=== PATIENT | male | born 2000 | race Caucasian/White ===

== ENCOUNTER 2019-10-21 11:38 | Outpatient (CLI) | payer OTHER, SELFPAY ==
--- NOTE | ~2019-10-21 | US_ITS ---
EXAMINATION: US abdomen limited DATE: 10/21/2019 12:31 INDICATION: Nausea, vomiting, abdominal pain TECHNIQUE: Multiple grayscale and Doppler ultrasound images of the abdomen were obtained. COMPARISON: CT, 10/02/2015 FINDINGS: The head and and body of the pancreas are normal. The pancreatic tail is obscured by bowel gas. There is a 3.2 x 2.9 cm ill-defined hyperechoic area in the posterior aspect of the right hepati c lobe. The liver is otherwise normal with normal echogenicity and echotexture. No surface nodularity . Normal hepatopetal flow in the main portal vein. The gallbladder is normal with no abnormal wall th ickening, pericholecystic fluid or stones. The normal common bile duct measures 3 mm. There was no so nographic Hillman sign. IMPRESSION: 1. Indeterminate 3.2 cm hyperechoic area of the right hepatic lobe. Further evaluation by CT or MRI w ithout and with contrast is recommended. Reviewed, dictated and finalized at location B. IMPRESSION: 1. Indeterminate 3.2 cm hyperechoic area of the right hepatic lobe. Further margarito luation by CT or MRI without and with contrast is recommended.
[2019-10-21 11:55] LABS: Hematocrit 44.1 % (40.0-54.0); Hemoglobin 15.4 g/dL (14.0-18.0); Mean Corpuscular HGB Conc 34.9 g/dL (32.0-36.0); Mean Corpuscular Hemoglobin 31.6 pg (27.0-31.0); Mean Corpuscular Volume 90.6 fL (78.0-102.0); Mean Platelet Volume 10.2 fl (8.7-11.0); Platelet Count Result 297 K/mm3 (150-420); Red Blood Count 4.87 M/mm3 (4.70-6.10); Red Cell Distribution Width 12.2 % (11.6-14.4); White Blood Count 8.8 K/mm3 (4.8-10.8)
[2019-10-21 11:57] LABS: Add Urine Microscopic? YES; Appearance Urine Clear (Clear); Bilirubin Urine 1+ (Negative); Blood Urine Negative (Negative); Color Urine Yellow (Yellow); Glucose Urine UA Negative (Negative); Ketones Urine Trace (Negative); Leukocyte Esterase Ur Negative (Negative); Nitrate Urine Negative (Negative); Protein Urine Negative (Negative)
[2019-10-21 12:11] LABS: Bacteria Urine 2+ /hpf; RBC Urine 0-2 /hpf (0-2); Squamous Epithelial Cell Urine Few /hpf (Few); WBC Urine 0-3 /hpf (0-3)
[2019-10-21 12:12] LABS: Alanine Aminotransferase 75 U/L (16-63); Albumin Level 4.4 g/dL (3.4-5.0); Alkaline Phosphatase 72 U/L (46-116); Amylase 54 U/L (25-115); Anion Gap 13.9 mmol/L (7-16); Aspartate Amino Transferase 36 U/L (15-37); Bilirubin,Total 0.8 mg/dL (0.00-1.00); Blood Urea Nitrogen 19 mg/dL (7-18); Calcium 9.8 mg/dL (8.5-10.1); Carbon Dioxide 29 mmol/L (21-32); Chloride 102 mmol/L (98-108); Estimated Glomerular Filt Rate > 60; Glucose 93 mg/dL (70-99); Lipase 80 U/L (73-393); Osmolality Calculated 294 mOsm/kg (285-295); Potassium 3.9 mmol/L (3.5-5.1); Sodium 141 mmol/L (136-145); Total Protein 9.1 g/dL (6.4-8.2)
[2019-10-21 12:17] LABS: Atypical Lymphocytes Present; Band Neutrophils Percent 0 % (0-6); Basophils Absolute Manual 0.17 K/mm3 (0-0.1); Basophils Percent Manual 2 % (0-1); Eosinophils Absolute Manual 0.17 K/mm3 (0.02-0.5); Eosinophils Percent Manual 2 % (1-6); Lymphocytes Absolute Manual 2.81 K/mm3 (1.1-4.5); Lymphocytes Percent Manual 32 % (18-44); Monocytes Absolute Manual 0.88 K/mm3 (0.1-0.90); Monocytes Percent Manual 10 % (3-9); Neutrophils Absolute Manual 4.75 K/mm3 (1.3-6.7); Neutrophils Percent Manual 54 % (46-73); Platelet Estimate Adequate (Adequate); Total Cells Counted 100
== END 2019-10-21 11:39 | disposition home or self-care (01) ==
PROVIDERS: PCP Internal Medicine; Visit Provider Internal Medicine
DX: R11.2 Nausea with vomiting, unspecified (principal); R10.9 Unspecified abdominal pain
CPT/HCPCS: 36415; 76705; 80053; 81001; 82150; 83690; 85025

== ENCOUNTER 2019-10-27 08:51 | Outpatient (CLI) | payer OTHER, SELFPAY ==
--- NOTE | ~2019-10-27 | CT_ITS ---
EXAMINATION: CT abdomen wo/w con INDICATION: Liver mass TECHNIQUE: Computed tomographic images of the abdomen were obtained prior to and then following the a dministration of 100 cc of Omnipaque 350 intravenous contrast in the arterial and portal venous phase s. The dose-length product (DLP) was 651.13 mGy-cm. Automated exposure control and iterative reconstr uction technique were employed. COMPARISON: 10/02/2015; 10/21/2019 FINDINGS: The lung bases are clear. The heart size is normal. There is a 1.4 cm arterially enhancing mass in liver segment IVb which is isodense to liver on the precontrast image and in the portal venou s postcontrast phase (image 53). No additional suspicious liver mass is identified. The spleen, pancr eas, gallbladder, and adrenal glands are normal. The kidneys are unremarkable. There are no pathologi hector enlarged abdominal lymph nodes. There are no dilated loops of bowel. IMPRESSION: 1. Arterially enhancing lesion of the liver which is likely benign in a patient with no known maligna ncy or hepatic dysfunction. Reviewed, dictated and finalized at location A. IMPRESSION: 1. Arterially enhancing lesion of the liver which is likely benign in a patient with no known malignancy or hepatic dysfunction.
== END 2019-10-27 08:52 | disposition home or self-care (01) ==
PROVIDERS: PCP Internal Medicine; Visit Provider Internal Medicine
DX: R16.0 Hepatomegaly, not elsewhere classified (principal)
CPT/HCPCS: 74170; Q9965

== ENCOUNTER 2020-05-22 12:28 | Outpatient (CLI) | payer OTHER, SELFPAY ==
--- NOTE | ~2020-05-22 | US_ITS ---
EXAMINATION: US right upper quadrant EXAM DATE: 05/22/2020 13:28 INDICATION: Liver lesion. TECHNIQUE: Multiple grayscale and Doppler images of the abdomen right upper quadrant were obtained (b y a technologist who performed the scan) and subsequently reviewed. Comparison is made to prior exami nation from 10/21/2019. FINDINGS: The pancreatic head and body are normal in appearance. The pancreatic tail is not visualized. The l iver has normal echogenicity and contour. There is ill-defined right liver lobe region measuring abo ut 3 cm, does not appear significant change. There is no evidence of intrahepatic biliary duct dilat ion. Portal venous flow was seen in the hepatopedal, normal direction and has normal Doppler wavefor m. No right-sided hydronephrosis. Common bile duct measures 3 mm, which is normal. The gallbladder wall is normal in thickness, with ex pected amount of distention. No sonographic evidence of pericholecystic fluid. There is no cholelit hiases. Technologist performing exam reports patient did not demonstrate sonographic Hillman's sign. Please note that this sign is less reliable in patients who have received pain medication. IMPRESSION: Liver lesion unchanged, consistent with benign histology. Reviewed, dictated and finalized at location A. [employer]
== END 2020-05-22 12:29 | disposition home or self-care (01) ==
LOC: CHSIMG 12:31
PROVIDERS: PCP Internal Medicine; Visit Provider Internal Medicine
DX: K76.9 Liver disease, unspecified (principal)
CPT/HCPCS: 76705

== ENCOUNTER 2021-09-30 16:09 | Outpatient (CLI) | payer OTHER, SELFPAY ==
--- NOTE | ~2021-09-30 | XR_ITS ---
EXAMINATION: XR lumbar spine 2-3V DATE: 09/30/2021 16:29 INDICATION: Low back pain TECHNIQUE: Anteroposterior and lateral views of the lumbar spine, and cone-down lateral view of the l umbosacral junction were obtained. COMPARISON: None. FINDINGS: There is no fracture, dislocation, or subluxation. The vertebral body heights, alignment, a nd intervertebral disc spaces are normal. The paravertebral soft tissues are unremarkable. IMPRESSION: 1. Normal lumbar spine. Reviewed, dictated and finalized at location B. IMPRESSION: 1. Normal lumbar spine.
== END 2021-09-30 16:10 | disposition home or self-care (01) ==
LOC: CHSIMG 16:11
PROVIDERS: PCP Internal Medicine; Visit Provider Nurse Practitioner Family
DX: M54.50 Low back pain, unspecified (principal)
CPT/HCPCS: 72100

== ENCOUNTER 2022-03-03 14:57 | Emergency (ER) | payer OTHER, SELFPAY ==
--- NOTE | ~2022-03-03 | CT_ITS ---
EXAMINATION: CT cervical spine wo con DATE: 03/03/2022 15:31 INDICATION: Neck pain TECHNIQUE: Computed tomography (CT) of the cervical spine was performed without intravenous contrast. The dose-length product (DLP) was 454.41 mGy-cm. Automated exposure control and iterative reconstruc tion technique were employed. COMPARISON: None FINDINGS: There is no fracture, dislocation, or subluxation. The vertebral body heights, alignment, a nd intervertebral disc spaces are normal. The odontoid is intact. The paravertebral soft tissues are unremarkable. IMPRESSION: 1. No acute osseous abnormality. Reviewed, dictated and finalized at location B.
[2022-03-03 15:00] VITALS: BP 136/88; PULSE 72; RESP 14; TEMP 36.6; O2SAT 98
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
== END 2022-03-03 16:00 | disposition home or self-care (01) ==
PROVIDERS: Emergency Provider Emergency Medicine; PCP Internal Medicine
DX: S13.4XXA Sprain of ligaments of cervical spine, initial encounter (principal); V89.2XXA Person injured in unspecified motor-vehicle accident, traffic, initial encounter
CPT/HCPCS: 72125; 99284